=== PATIENT | male | born 1940 | race Caucasian/White ===

== ENCOUNTER 2018-07-25 12:30 | Outpatient (CLI) | payer MEDICARE, OTHER ==
[~2018-07-25] VITALS: Ht 182.9 cm; Wt 104.3 kg
[~2018-07-25 12:30] MED LIST: ASP81TEC PO; ATEN50TA PO; DEPO-TESTOSTERONE IM; GLIP10TA13 PO; LISI1TAB10 PO; METF-380 PO; OMG1KC PO; SIMV20TA3 PO; VITAMINE E PO
[2018-07-25] MEDS ORDERED: ATEN100T PO (12:47)
[2018-07-25] MEDS ORDERED: METF-399 PO (12:47)
[2018-07-25] MEDS ORDERED: VITA100033 PO (12:47)
[2018-07-25] MEDS ORDERED: SIMV20TA3 PO (12:47)
[2018-07-25] MEDS ORDERED: LISI1TAB10 PO (12:47)
[2018-07-25] MEDS ORDERED: AMLO10TA7 PO (12:47)
[2018-07-25] MEDS ORDERED: GLIP10TA13 PO (12:47)
[2018-07-25] MEDS ORDERED: ASPI-586 PO (12:47)
[2018-07-25] MEDS ORDERED: FISH1CAP15 PO (12:47)
== END 2018-07-25 13:37 | disposition home or self-care (01) ==
LOC: PREOP 12:30
PROVIDERS: ATTEND Surgery
DX: Z01.818 Encounter for other preprocedural examination (principal)

== ENCOUNTER 2018-07-26 06:54 | Day surgery (SDC) | payer MEDICARE, OTHER ==
[~2018-07-26] VITALS: Ht 182.9 cm; Wt 104.3 kg
[~2018-07-26 06:54] MED LIST changes: +AMLO10TA7 PO; +ASPI-586 PO; +ATEN100T PO; +FISH1CAP15 PO; +METF-399 PO; +VITA100033 PO
--- OUTSIDE RECORDS SUMMARY | 2018-07-26 06:57 | XMS REPORT | Continuity of Care Document ---
Author Author [facility] Organization [facility] Address Unknown Phone Unavailable Allergies Active Description Code Type Severity Reaction Onset Reported/Identified Relationship to Patient Clinical Status Yes propoxyphene [id number] Drug Allergy Severe SEVERE ALLERGIC 10/10/2005 Medications There is no data. Problems Date Dx Coded Attending Type Code Diagnosis Diagnosed By 07/21/2018 MIMI LÓPEZ DO Ot Z01.818 ENCOUNTER FOR OTHER PREPROCEDURAL EXAMIN Procedures There is no data. Results There is no data. Encounters ACCT No. Visit Date/Time Discharge Status Pt. Type Provider Facility Loc./Unit Complaint [id number] 07/20/2018 05:30:00 07/20/2018 23:59:59 CLS Outpatient MIMI LÓPEZ DO [facility] PREOP COLONOSCOPY [id number] 05/23/2013 12:19:00 05/23/2013 23:59:59 CLS Outpatient [id number] 05/17/2013 07:11:00 05/17/2013 23:59:59 CLS Outpatient [id number] 07/26/2018 08:00:00 PEN Preadmit MIMI LÓPEZ DO [facility] ENDO HX COLON POLYPS
[2018-07-26] MEDS ORDERED: LACTATED RINGERS 1,000 ML IV ONE (07:08)
[2018-07-26] MEDS ORDERED: LACTATED RINGERS 1,000 ML IV STA (07:17)
[2018-07-26] MEDS ORDERED: MIDAZOLAM 2 MG/2 ML (VERSED) VIAL ONE (07:30)
[2018-07-26] MEDS ORDERED: PROPOFOL INJECTION 50 ML IV ONE (07:30)
[2018-07-26 08:14] VITALS: BP 171/90
--- NOTE | 2018-07-26 08:28 | Progress Note-Post Operative ---
Post-Operative Progess Note Surgeon (s)/Director Enterprise Sales (s) Surgeon MIMI LÓPEZ DO Director Enterprise Sales: na Pre-Operative Diagnosis Hx of polyps Post-Operative Diagnosis diverticulosis and rectal polyp Procedure & Operative Findings Date of Procedure 07/26/18 Procedure Performed/Findings Colonoscopy with hot biopsy and polypectomy Anesthesia Type per FIELD REPRESENTATIVE/HEALTH EDUCATION Estimated Blood Loss Estimated blood loss (mL): None Specimens/Packing Specimens Removed Rectal polyp MIMI LÓPEZ DO Jul 26, 2018 08:28
--- NOTE | 2018-07-26 08:29 | Discharge Inst-Simple/Standard ---
Discharge Inst-Standard Patient Instructions/Follow Up Plan of Care/Instructions/FU: 2 weeks Adela Activity as Tolerated: Yes Discharge Diet: Regular Diet (high fiber) MIMI LÓPEZ DO Jul 26, 2018 08:29
[2018-07-26 08:35] VITALS: BP 149/77
[2018-07-26 09:05] VITALS: BP 178/98
[2018-07-26 09:10] VITALS: BP 178/98
--- NOTE | 2018-07-26 10:42 | Anesthesia-General Post-Op ---
MAC Patient Condition Mental Status/LOC: Same as Preop Cardiovascular: Satisfactory Nausea/Vomiting: Absent Respiratory: Satisfactory Pain: Controlled Complications: Absent Post Op Complications Complications None Follow Up Care/Instructions Patient Instructions None needed. Anesthesiology Discharge Order Discharge Order Patient was seen after the procedure and he was doing well, no complaints, stable vital signs, no apparent adverse anesthesia problems. KELTON MAST DO Jul 26, 2018 10:42
--- NOTE | 2018-07-27 06:55 | OPERATIVE REPORT ---
DATE OF SERVICE: 07/26/2018 PREOPERATIVE DIAGNOSIS: History of colon polyps. POSTOPERATIVE DIAGNOSES: Rectal polyp and diverticulosis. PROCEDURE: Colonoscopy with hot biopsy polypectomy. SURGEON: Mimi Chapman DO ANESTHESIA: Per COMMUNICABLE DISEASE SPECIALIST. ESTIMATED BLOOD LOSS: None. COMPLICATIONS: None. INDICATIONS: The patient is a 77-year-old male with history of colon polyps. He understands risks and benefits of the procedure and he wished to proceed with procedure. Consent was signed in the chart. DESCRIPTION OF PROCEDURE: The patient was taken to the endoscopy suite, placed in the left lateral recumbent position. Timeout was performed. Digital rectal exam was performed. There were no palpable polyps, masses or ulcerations. Scope was inserted into the rectum and advanced all the way to the cecum with minimal difficulty. Prep was adequate. Scope was slowly retracted back. There were no polyps, masses or ulcerations within the cecum, ascending, transverse and descending colon. In the sigmoid colon, there was a moderate amount of diverticulosis present. No polyps, masses or ulcerations. Scope was continuously retracted back into the rectum, where a small polyp was present to which hot biopsy polypectomy was performed. Scope was retroflexed noting no other pathology. Scope was returned to its normal position, slowly withdrawn until completely removed. The patient tolerated the procedure well without any complications and taken to recovery room in stable condition. RECOMMENDATIONS: The patient will follow up in the office in 2 weeks to discuss pathology results and see how he is doing. He is recommended high fiber diet. The patient will need repeat colonoscopy in 5 years unless he has any issues before then he will be seen at that time. Job ID: [id number] DocumentID: [id number] Dictated Date: 07/26/2018 08:33:16 Document Scanner Date: 07/26/2018 15:14:05 Dictated By: MIMI CHAPMAN DO
== END 2018-07-26 09:20 | disposition home or self-care (01) ==
LOC: ENDO 06:54
PROVIDERS: ATTEND Surgery
DX: Z12.11 Encounter for screening for malignant neoplasm of colon (principal); K62.1 Rectal polyp; K57.30 Diverticulosis of large intestine without perforation or abscess without bleeding; Z86.010 Personal history of colon polyps; E11.9 Type 2 diabetes mellitus without complications; I10 Essential (primary) hypertension; G47.33 Obstructive sleep apnea (adult) (pediatric); Z79.02 Long term (current) use of antithrombotics/antiplatelets; Z79.82 Long term (current) use of aspirin; Z79.84 Long term (current) use of oral hypoglycemic drugs; Z79.899 Other long term (current) drug therapy; Z87.891 Personal history of nicotine dependence
CPT/HCPCS: 82962

== ENCOUNTER → 2019-03-15 | Outpatient (CLI) | payer MEDICARE, OTHER ==
--- NOTE | 2019-03-15 11:58 | Diagnostic Imaging Report ---
Lumbar spine at 1054 hours. INDICATION: Back pain. AP, lateral and bilateral views were obtained. There are no prior lumbar spine examinations available for comparison. FINDINGS: The lateral view does show severe degenerative disc and bony disease at L5-S1. Specifically, there is narrowing of the disc space at this level as well as sclerosis of the opposing endplates of L5 and S1. There is also bony overgrowth along the ventral aspect of the disc space. These findings seem similar to the prior abdomen exam of 08/23/2007. The other intervertebral spaces are fairly well maintained. 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 This finding has developed in the interval since the prior exam. There is no fracture or acute bony abnormality appreciated. There is no sign of a paraspinal mass. There is mild symmetrical sclerosis of the sacroiliac joints. IMPRESSION: 1. There is no evidence for an acute bony abnormality. 2. There is fairly severe degenerative disc and bony disease at L5-S1. A prominent bridging osteophyte on the right has also developed at L2-L3 since the prior study. 3. If there is clinical concern regarding spinal stenosis or nerve root encroachment, then MRI would be recommended for further evaluation. Dictated by: Dictated on workstation # [id number]
--- NOTE | 2019-03-15 12:19 | Diagnostic Imaging Report ---
EXAMINATION: Left hip at 10:54 AM. INDICATION: Hip pain. TECHNIQUE: AP and lateral views were obtained. FINDINGS: There is no fracture, dislocation, or acute bony abnormality evident. 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 The degenerative changes seem similar to the prior exam of 08/23/2007. There is also mild degenerative disease of the left sacroiliac joint and this, too, is unchanged when compared to the prior study. The soft tissues are unremarkable. IMPRESSION: There is no evidence for an acute bony abnormality. Dictated by: Dictated on workstation # [id number]
== END ==
LOC: RAD 10:44
PROVIDERS: ATTEND Family Medicine
DX: M51.37 Other intervertebral disc degeneration, lumbosacral region (principal); M89.9 Disorder of bone, unspecified; M25.78 Osteophyte, vertebrae
CPT/HCPCS: 72100; 73502